=== PATIENT | female | born 1960 | race Caucasian/White ===

== ENCOUNTER 2021-12-06 09:57 | Emergency (ER) | payer OTHER ==
[2021-12-06 10:18] LABS: EOSINOPHIL 0.1 & (0-5); HCT 38.6 % (37.0-47.0); HGB 12.3 g/dl (12.5-16.0); LYMPHOCYTE 20.7 % (15-48); MCH 27.4 pg (25.0-31.0); MCHC 31.9 g/dL (32.0-36.0); MONOCYTE 3.9 % (0-12); MPV 8.6 fL (6.0-9.5); NEUTROPHIL 73.8 % (41-80); PLT 493 K/uL (150-400); RBC 4.49 M/uL (4.20-5.40); RDW 12.9 % (11.5-14.0); WBC 21.33 K/uL (4.0-10.5)
[2021-12-06 10:27] LABS: INR 1.75 (0.9-1.2); PROTHROMBIN TIME 19.8 SECONDS (11.9-13.9); PTT 31.9 SECONDS (24.9-34.6)
[2021-12-06 10:40] LABS: ALBUMIN 3.8 g/dL (3.4-5.0); BILIRUBIN - TOTAL 0.5 mg/dL (0.2-1.0); BUN/CREAT RATIO (CALC) 32.1 RATIO; CREATININE 0.81 mg/dL (0.51-0.95); GLOBULIN (CALCULATION) 4.4 g/dL; POTASSIUM 3.4 mmol/L (3.5-5.1); TOTAL PROTEIN 8.2 g/dL (6.4-8.2)
[2021-12-06 11:12] LABS: CORONAVIRUS 2019 SARS-COV-2 NEGATIVE (NEGATIVE); INFLUENZA A NAA NEGATIVE (NEGATIVE)
[2021-12-06 12:15] LABS: BILIRUBIN NEGATIVE (NEGATIVE); BLOOD NEGATIVE Ery/uL (NEGATIVE); CLARITY CLEAR (CLEAR); COLOR YELLOW (YELLOW); GLUCOSE (U) NORMAL (NORMAL); LEUKOCYTES TRACE Leu/uL (NEGATIVE); NITRITE NEGATIVE (NEGATIVE); PROTEIN NEGATIVE (NEGATIVE); SPECIFIC GRAVITY 1.015 (1.001-1.030); UROBILINOGEN 0.2 mg/dL (0.2-1.0)
[2021-12-06 12:24] LABS: BACTERIA TRACE
[2021-12-06] MEDS ORDERED: OMEPRAZOLE40 MG PO (13:17)
== END 2021-12-06 13:30 | disposition home or self-care (01) ==
LOC: FER 09:57
PROVIDERS: Internal Medicine
DX: R07.89 Other chest pain (principal); R11.0 Nausea; R10.9 Unspecified abdominal pain; I48.91 Unspecified atrial fibrillation; I10 Essential (primary) hypertension; Z85.6 Personal history of leukemia; Z20.822 Contact with and (suspected) exposure to COVID-19; Z98.890 Other specified postprocedural states; Z79.899 Other long term (current) drug therapy; Z79.01 Long term (current) use of anticoagulants; Z79.810 Long term (current) use of selective estrogen receptor modulators (SERMs)
CPT/HCPCS: 36415; 71275; 80053; 81001; 83605; 83690; 83880; 84484; 85025; 85610; 85730; 87040; 87186; 93005; J2270; J2405; J2543; J7030; Q9967; U0002